=== PATIENT | female | born 1935 | race Caucasian/White ===

== ENCOUNTER 2024-08-20 12:11 | Outpatient (CLI) | payer MEDICARE, SELFPAY ==
[2024-08-20 12:40] LABS: Activated Partial Thrombo Time 42.6 seconds (22.5-28.5); INR 0.91 (0.9-1.1); Prothrombin Time 10.1 seconds (9.2-12.1)
== END 2024-08-20 23:59 | disposition home or self-care (01) ==
PROVIDERS: Visit Provider Internal Medicine Medical Oncology
DX: D64.9 Anemia, unspecified (principal); D68.9 Coagulation defect, unspecified
CPT/HCPCS: 36415; 85610; 85730